=== PATIENT | female | born 1975 | race Caucasian/White ===

== ENCOUNTER 2017-03-31 14:52 | Emergency (ER) | payer BC, OTHER ==
[~2017-03-31] VITALS: Ht 154.9 cm; Wt 59.7 kg
[2017-03-31 15:04] VITALS: BP 113/69; PULSE 94; RESP 16; TEMP 98.5; O2SAT 99
--- NOTE | 2017-03-31 15:24 | PD ---
HPI Chief Complaint: Respiratory Symptoms Time Seen by Provider: 15:07 Travel History International Travel<30 days: No Contact w/Intl Traveler<30days: No Traveled to known affect area: No History of Present Illness HPI The patient is a 41-year-old female who presents to the emergency department for multiple complaints. The patient notes an ongoing history of low back pain that has progressed over the last several days. The pain is located lower lumbar region, bilateral, worse with lying supine, worse in the morning when she awakens, and better with activity and standing upright. There is no pain elicited with rotation of the thorax or flexion/extension of the thorax. The pain is nonradiating, she denies any weakness or numbness of lower extremities. The patient denies any urinary or fecal incontinence, however, does note occasional difficulty initiating a urinary stream. The patient also complains of a dry nonproductive cough for the last 2 days that his "raspy ". The patient denies any history of tobacco use, COPD, bronchitis, or pulmonary embolism. The patient denies any recent hospitalizations, travels, or surgeries. The patient does have a remote history of breast cancer with subsequent bilateral mastectomy, did not undergo chemotherapy or radiation therapy. The patient does have a history of left ovarian cyst, was advised by her physician that this may be causing her low back pain. She denies any nausea , vomiting, diarrhea, abdominal pain, dysuria, frequency, or urgency. She denies any trauma to the low back. PFSH Past Medical History Cancer: Yes (LEFT BREAST 2004, RAJAT MASTECTOMY WITH SENTINEL NODE INVOLVEMENT) Diminished Hearing: No Immunizations Current: Yes Influenza Vaccination: No ?: Not : 3 Para: 3 Miscarriage: 0 : 0 Past Surgical History Section: Yes Mastectomy: Yes (BILATERAL) Other Surgery: Yes (BILATERAL MASTECTOMY 2003, breast implants) Social History Alcohol Use: Yes (socially) Tobacco Use: No Substance Use: No Allergies-Medications (Allergen,Severity, Reaction): Coded Allergies: Penicillin (Verified Allergy, Severe, SOB HIVES, 03/31/17) Reported Meds & Prescriptions Reported Meds & Active Scripts Active No Active Prescriptions or Reported Medications Review of Systems Except as stated in HPI: all other systems reviewed are Neg General / Constitutional: No: Fever Cardiovascular: No: Chest Pain or Discomfort Respiratory: Positive: Cough, No: Shortness of Breath, Wheezing Gastrointestinal: No: Nausea, Vomiting, Abdominal Pain Genitourinary: No: Dysuria Musculoskeletal: Positive: Pain (low back pain) Neurologic: No: Paresthesia, Sensory Disturbance Physical Exam Narrative GENERAL: Awake, alert, 41-year-old female who appears her stated age is in no acute respiratory distress. SKIN: Focused skin assessment warm/dry. HEAD: Atraumatic. Normocephalic. EYES: Pupils equal and round. No scleral icterus. No injection or drainage. ENT: No nasal bleeding or discharge. Mucous membranes pink and moist. NECK: Trachea midline. No JVD. CARDIOVASCULAR: Regular rate and rhythm. No murmur appreciated. RESPIRATORY: No accessory muscle use. Clear to auscultation. Breath sounds equal bilaterally. GASTROINTESTINAL: Abdomen soft, minimal suprapubic tenderness. Back: No tenderness over the lumbar vertebrae. No tenderness of the paravertebral muscles. No tenderness of the sacroiliac joints. No pain elicited with rotation of the thorax to the left or right. No pain elicited with flexion and extension of the thorax. MUSCULOSKELETAL: No obvious deformities. No clubbing. No cyanosis. No edema. NEUROLOGICAL: Awake and alert. No obvious cranial nerve deficits. Motor grossly within normal limits. Normal speech. PSYCHIATRIC: Appropriate mood and affect; insight and judgment normal. Data Data Last Documented VS Vital Signs Date Time Temp Pulse Resp B/P Pulse Ox O2 Delivery O2 Flow Rate FiO2 03/31/17 15:17 100 Room Air 03/31/17 15:04 98.5 94 16 113/69 Orders Chest, Single Ap (03/31/17 ) Spine, Lumbar - Ltd (Ap & Lat) (03/31/17 ) Urinalysis - C+S If Indicated (03/31/17 15:16) Ed Urine Pregnancytest Poc (03/31/17 15:16) Labs Laboratory Tests Test 03/31/17 15:20 Urine Collection Type CLEAN CATCH Urine Color YELLOW Urine Turbidity CLEAR Urine pH 5.5 Urine Specific [place] 1.026 Urine Protein NEG mg/dL Urine Glucose (UA) NEG mg/dL Urine Ketones NEG mg/dL Urine Occult Blood TRACE Urine Nitrite NEG Urine Bilirubin NEG Urine Leukocyte Esterase NEG Urine WBC 0-2 /hpf Urine Squamous Epithelial 0-5 /hpf Cells Microscopic Urinalysis Comment CULT NOT INDICATED MDM Medical Decision Making Medical Screen Exam Complete: Yes Emergency Medical Condition: Yes Medical Record Reviewed: Yes Interpretation(s) Laboratory Tests Test 03/31/17 15:20 Urine Collection Type CLEAN CATCH Urine Color YELLOW Urine Turbidity CLEAR Urine pH 5.5 Urine Specific [place] 1.026 Urine Protein NEG mg/dL Urine Glucose (UA) NEG mg/dL Urine Ketones NEG mg/dL Urine Occult Blood TRACE Urine Nitrite NEG Urine Bilirubin NEG Urine Leukocyte Esterase NEG Urine WBC 0-2 /hpf Urine Squamous Epithelial 0-5 /hpf Cells Microscopic Urinalysis Comment CULT NOT INDICATED Last Impressions Lumbar Spine X-Ray 03/31/17 0000 Signed Impressions: Service Date/Time: Friday, March 31, 2017 15:25 - CONCLUSION: 1. Mild degenerative changes as described above.8 Ed Aaron MD Chest X-Ray 03/31/17 0000 Signed Impressions: Service Date/Time: Friday, March 31, 2017 15:20 - CONCLUSION: 1. No acute cardiopulmonary disease. Ed Aaron MD Differential Diagnosis Differential diagnosis includes bronchitis, medication side effect, congestive heart failure, GERD, pulmonary embolism, pneumonia, back pain, metastasis, spondylolisthesis, osteoarthritis, UTI, . Narrative Course The bedside UA test was negative, UA was sent to lab. Chest x-ray and lumbar spine x-ray were obtained. UA reveals trace blood otherwise unremarkable. X-ray lumbar spine reveals degenerative changes and loss of the lordotic curve, otherwise unremarkable. Chest x-ray is negative. The patient is advised to follow-up with a primary physician, she may benefit from referral to physical therapy for core training exercises, his symptoms persist she may benefit from outpatient follow-up with orthopedics. The patient stable for outpatient follow-up. Diagnosis Primary Impression: Low back pain Qualified Code: M54.5 - Acute bilateral low back pain without sciatica Additional Impression: Cough Patient Instructions: General Instructions Additional Instructions: Ibuprofen as directed. Follow-up with a primary physician, you may benefit from outpatient physical therapy evaluation. Return if symptoms worsen or progress. Please provide the patient a copy of her urine results and x-ray results at discharge. Med/Other Pt SpecificInfo: Prescription(s) given Scripts Ibuprofen 600 Mg Pmn323 Mg PO Q6H PRN (Pain/Inflammation) #20 TAB Ref 0 Prov:Edmond Duke MD 03/31/17 Disposition: 01 DISCHARGE HOME Condition: Stable Edmond Duke MD March 31, 2017 15:24
--- NOTE | 2017-03-31 15:42 | RADHPO ---
EXAM DATE/TIME: 03/31/2017 15:20 [facility] COMPARISON: No previous studies available for comparison. INDICATIONS : Cough. MEDICAL HISTORY : Carcinoma, breast. SURGICAL HISTORY : Mastectomy, right. Mastectomy, left. ENCOUNTER: Initial ACUITY: 3 days PAIN SCORE: 2/10 LOCATION: Bilateral chest FINDINGS: The cardiac silhouette is normal in transverse diameter. The lungs are free of acute parenchymal opac ity. No effusions are identified. There are surgical clips in the axillary regions bilaterally. CONCLUSION: 1. No acute cardiopulmonary disease. Ed Aaron MD on March 31, 2017 at 15:40 Board Certified Radiologist. This report was verified electronically.
--- NOTE | 2017-03-31 15:44 | RADHPO ---
EXAM DATE/TIME: 03/31/2017 15:25 [facility] COMPARISON: No previous studies available for comparison. INDICATIONS : Lumbar spine pain. No known injury. MEDICAL HISTORY : Carcinoma, breast. SURGICAL HISTORY : Mastectomy, left. Mastectomy, right. ENCOUNTER: Initial ACUITY: 1 month PAIN SCORE: 8/10 LOCATION: Bilateral lumbar spine FINDINGS: There is reversal of the normal lumbar lordosis. There is no evidence of acute fracture. Bony mineral ization is normal. Degenerative changes present at the thoracolumbar junction. No bony destruction is identified. CONCLUSION: 1. Mild degenerative changes as described above.8 Ed Aaron MD on March 31, 2017 at 15:41 Board Certified Radiologist. This report was verified electronically.
[2017-03-31 15:58] LABS: BLOOD, URINE TRACE (NEG); GLUCOSE,URINE NEG (NEG); KETONE, URINE NEG (NEG); NITRITE,URINE NEG (NEG); PH, URINE 5.5 (5.0-8.5)
[2017-03-31 16:33] LABS: METHOD OF COLLECTION CLEAN CATCH; SQUAMOUS EPITHELIAL CELL URINE 0-5 /hpf (0-5); URINE COLOR YELLOW (YELLW/STRAW); WBC, URINE 0-2 /hpf (0-5)
[2017-03-31 16:34] LABS: COMMENT (UR) CULT NOT INDICATED; CULTURE IF INDICATED CULT NOT INDICATED
[2017-03-31] MEDS ORDERED: IBUP-232 PO (16:46)
== END 2017-03-31 16:57 | disposition home or self-care (01) ==
LOC: PHED 14:52
DX: M54.5 Low back pain (principal); R05 Cough; Z88.0 Allergy status to penicillin
CPT/HCPCS: 71010; 72100; 81001; 84703; 99284

== ENCOUNTER 2017-11-07 20:22 | Emergency (ER) | payer BC, OTHER ==
[~2017-11-07] VITALS: Ht 152.4 cm; Wt 63.2 kg
[~2017-11-07 20:22] MED LIST: IBUP-232 PO
[2017-11-07 20:32] VITALS: BP 110/56; PULSE 79; RESP 16; TEMP 99.2; O2SAT 99
[2017-11-07] MEDS ORDERED: LEVO50TA4 PO (20:42)
[2017-11-07] MEDS ORDERED: AZIT250T3 PO (20:50)
[2017-11-07] MEDS ORDERED: ALBUAER3 INH (20:50)
[2017-11-07] MEDS ORDERED: PRED20 PO (20:50)
--- NOTE | 2017-11-07 20:51 | PD ---
HPI Chief Complaint: Cold / Flu Symptoms Time Seen by Provider: 20:40 Travel History International Travel<30 days: No Contact w/Intl Traveler<30days: No Traveled to known affect area: No History of Present Illness HPI 42 -year-old female here with productive cough and wheezing times one week. She reports sputum production. Subjective fever and chills. Symptoms severity moderate. Unrelieved by [id number] cough cold medications. She has had similar symptoms in the past with bronchitis/pneumonia. PFSH Past Medical History Cancer: Yes (LEFT BREAST 2003, RAJAT MASTECTOMY WITH SENTINEL NODE INVOLVEMENT) Diminished Hearing: No Immunizations Current: Yes Thyroid Disease: Yes Tetanus Vaccination: > 5 Years Influenza Vaccination: No ?: Not LMP: 10/25/17 : 3 Para: 3 Miscarriage: 0 : 0 Past Surgical History Section: Yes Mastectomy: Yes (BILATERAL) Other Surgery: Yes (BILATERAL MASTECTOMY 2003, breast implants) Social History Alcohol Use: Yes (socially) Tobacco Use: No Substance Use: No Allergies-Medications (Allergen,Severity, Reaction): Coded Allergies: penicillin G (Unverified Allergy, Severe, SOB HIVES, 11/07/17) Reported Meds & Prescriptions Reported Meds & Active Scripts Active Proair Hfa 8.5 GM Inh (Albuterol Sulfate) 90 Mcg/Act Aer 2 Puff INH Q4-6H PRN 108 mcg/actuation Prednisone 20 Mg Tab 40 Mg PO DAILY Take 40 mg (2 tablets) daily for 5 days Azithromycin 250 Mg Tab 250 Mg PO DIRECTED Take 2 tabs (500 mg) on day 1 then 1 tab daily x 4 days. Reported Levothyroxine (Levothyroxine Sodium) 50 Mcg Tab 50 Mcg PO DAILY Review of Systems Except as stated in HPI: all other systems reviewed are Neg General / Constitutional: Positive: Fever HENT: No: Headaches Cardiovascular: No: Chest Pain or Discomfort Respiratory: Positive: Cough, Wheezing Gastrointestinal: No: Abdominal Pain Physical Exam Narrative GENERAL: Alert female. Well-appearing SKIN: Warm and dry. HEAD: Normocephalic. EYES: No injection or drainage. NECK: Supple, trachea midline. CARDIOVASCULAR: Regular rate and rhythm RESPIRATORY: Breath sounds equal bilaterally. No accessory muscle use. Harsh sounding cough with rhonchi. Slight expiratory wheezes. GASTROINTESTINAL: Abdomen soft, non-tender, nondistended. Data Data Last Documented VS Vital Signs Date Time Temp Pulse Resp B/P (MAP) Pulse Ox O2 Delivery O2 Flow Rate FiO2 11/07/17 20:41 Room Air 11/07/17 20:32 99.2 79 16 110/56 (74) 99 MDM Medical Decision Making Medical Screen Exam Complete: Yes Emergency Medical Condition: Yes Differential Diagnosis Bronchitis, pneumonia, influenza, reactive airway Narrative Course 42-year-old female here with rhonchorous cough with productive sputum. Her vital signs are stable. Diagnosis Primary Impression: Bronchitis Referrals: Primary Care Physician Scripts Albuterol 8.5 GM Inh (Proair Hfa 8.5 GM Inh) 90 Mcg/Act Aer 2 PUFF INH Q4-6H Y for SHORTNESS OF BREATH, #1 INHALER 0 Refills 108 mcg/actuation Prov: Sabrina Sanders 11/07/17 Prednisone (Prednisone) 20 Mg Tab 40 MG PO DAILY, #10 TAB 0 Refills Take 40 mg (2 tablets) daily for 5 days Prov: Sabrina Sanders 11/07/17 Azithromycin (Azithromycin) 250 Mg Tab 250 MG PO DIRECTED for Infection, #6 TAB 0 Refills Take 2 tabs (500 mg) on day 1 then 1 tab daily x 4 days. Prov: Sabrina Sanders 11/07/17 Disposition: 01 DISCHARGE HOME Condition: Stable Sabrina Sanders Nov 07, 2017 20:51
== END 2017-11-07 20:57 | disposition home or self-care (01) ==
LOC: PHEFT 20:22
DX: J40 Bronchitis, not specified as acute or chronic (principal)
CPT/HCPCS: 99284

== ENCOUNTER 2018-03-31 21:17 | Emergency (ER) | payer BC, OTHER ==
[~2018-03-31] VITALS: Ht 157.5 cm; Wt 61.0 kg
[~2018-03-31 21:17] MED LIST changes: +ALBUAER3 INH; +AZIT250T3 PO; -IBUP-232 PO; +LEVO50TA4 PO; +PRED20 PO
[2018-03-31 21:20] VITALS: BP 114/55; PULSE 85; RESP 18; TEMP 98.4; O2SAT 98
[2018-03-31 22:24] LABS: AUTOMATED NEUTROPHIL # 3.7 TH/MM3 (1.8-7.7); BASOPHIL # 0.1 TH/MM3 (0-0.2); BASOPHIL % 1.8 % (0.0-2.0); EOSINOPHIL # 0.4 TH/MM3 (0-0.4); HEMATOCRIT 38.6 % (35.0-46.0); HEMOGLOBIN 13.3 GM/DL (11.6-15.3); LYMPH % 36.5 % (9.0-44.0); LYMPHOCYTE # 2.7 TH/MM3 (1.0-4.8); MEAN CORPUSCULAR HEMOGLOBIN 32.4 PG (27.0-34.0); MEAN CORPUSCULAR HGB CONC 34.5 % (32.0-36.0); MEAN PLATELET VOLUME 7.7 FL (7.0-11.0); MONO % 8.6 % (0.0-8.0); MONOCYTE # 0.6 TH/MM3 (0-0.9); NEUT % 47.1 % (16.0-70.0); PLATELET COUNT 284 TH/MM3 (150-450); RED BLOOD COUNT 4.11 MIL/MM3 (4.00-5.30); RED CELL DISTRIBUTION WIDTH 11.9 % (11.6-17.2); WHITE BLOOD COUNT 7.5 TH/MM3 (4.0-11.0)
[2018-03-31 22:31] LABS: CHLORIDE 105 MEQ/L (98-107); SODIUM (NA) 139 MEQ/L (136-145)
[2018-03-31 22:34] LABS: BICARBONATE 28.6 MEQ/L (21.0-32.0); CALCIUM 8.8 MG/DL (8.5-10.1); GLUCOSE,RANDOM 90 MG/DL (74-106)
[2018-03-31 22:35] LABS: BLOOD UREA NITROGEN 13 MG/DL (7-18)
[2018-03-31 22:38] LABS: CREATININE 0.91 MG/DL (0.50-1.00); GLOMERULAR FILTRATION RATE 68 ML/MIN (>89)
[2018-03-31 22:39] LABS: C-REACTIVE PROTEIN LESS THAN 0.29 MG/DL (0.00-0.30)
--- NOTE | 2018-03-31 23:46 | RADRPT ---
EXAM DATE: 03/31/2018 11:37 PM EDT AGE/SEX: 42 years / Female INDICATIONS: Intermittent right temporal pain and blurry vision x 3 months, worse this week. CLINICAL DATA: This is the patient's initial encounter. Patient reports that signs and symptoms have been present for 3 months and indicates a pain score of 6/10. MEDICAL/SURGICAL HISTORY: Carcinoma, breast. Mastectomy, bilateral. section. RADIATION DOSE: 52.57 CTDI (mGy) COMPARISON: No prior [facility] exams available for comparison. TECHNIQUE: CT of the head without contrast. Using automated exposure control and adjustment of the mA and/or kV according to patient size, radiation dose was kept as low as reasonably achievable to ob tain optimal diagnostic quality images. FINDINGS: Cerebrum: The ventricles are normal for age. No evidence of midline shift, mass lesion, hemorrhage or acute infarction. No extraaxial fluid collections are seen. Posterior Fossa: The cerebellum and brainstem are intact. The 4th ventricle is midline. The cerebe llopontine angle is unremarkable. Extracranial: The visualized portion of the orbits is intact. Skull: The calvaria is intact. No evidence of skull fracture. CONCLUSION: 1. Negative noncontrast head CT. Electronically signed by: Rafael Carpenter MD 03/31/2018 11:44 PM EDT
[2018-04-01] MEDS ORDERED: KETOROLAC TROMETHAMINE 30 MG/ML (IVP) VIAL IV PUSH ONE
--- NOTE | 2018-04-01 00:03 | PD ---
HPI Chief Complaint: Headache Time Seen by Provider: 22:08 Travel History International Travel<30 days: No Contact w/Intl Traveler<30days: No Traveled to known affect area: No History of Present Illness HPI 42-year-old female presents to the emergency department by private transportation for complaint of headache; several weeks of headache with worsening tonight. Headache is right-sided is not sudden onset not thunderclap no visual disturbance no photophobia no diplopia no blurred vision. Patient is concerned that she has temporal arteritis. No prior history of migraine headaches no family history of migraine headaches patient is taken no medications or symptoms. Patient states headache is present every day and just waxes and wanes in intensity at worst to 5/10 intensity at least is a 3/10 intensity. Patient is taken no medications prior to arrival to the emergency department. PFSH Past Medical History Cancer: Yes (LEFT BREAST 2003, RAJAT MASTECTOMY WITH SENTINEL NODE INVOLVEMENT) Diminished Hearing: No Immunizations Current: Yes Thyroid Disease: Yes Tetanus Vaccination: Unknown Influenza Vaccination: No ?: Not LMP: 03-31-18 : 3 Para: 3 Miscarriage: 0 : 0 Past Surgical History Section: Yes Mastectomy: Yes (BILATERAL) Other Surgery: Yes (BILATERAL MASTECTOMY 2003, breast implants) Social History Alcohol Use: Yes (socially) Tobacco Use: No Substance Use: No Allergies-Medications (Allergen,Severity, Reaction): Coded Allergies: penicillin G (Unverified Allergy, Severe, SOB HIVES, 03/31/18) Reported Meds & Prescriptions Reported Meds & Active Scripts Active Reported Levothyroxine (Levothyroxine Sodium) 50 Mcg Tab 50 Mcg PO DAILY Review of Systems Except as stated in HPI: all other systems reviewed are Neg General / Constitutional: No: Fever, Chills Eyes: Positive: Blurred Vision, Photophobia, No: Diploplia HENT: No: Headaches, Congestion Cardiovascular: No: Chest Pain or Discomfort Respiratory: No: Shortness of Breath Gastrointestinal: No: Nausea Genitourinary: No: Urgency, Frequency Skin: No Rash, No Itching Neurologic: No: Weakness Psychiatric: No: Anxiety Endocrine: No: Heat Intolerance Hematologic/Lymphatic: No: Lymph Node Enlargement Physical Exam Narrative GENERAL: Well-developed well-nourished female no acute distress no respiratory distress SKIN: Warm and dry. HEAD: Atraumatic. Normocephalic. EYES: Pupils equal and round. No scleral icterus. No injection or drainage. Pupils equal round reactive to light extraocular muscles intact no temporal artery bruits no carotid bruit airways patent mucous membranes moist ENT: No nasal bleeding or discharge. Mucous membranes pink and moist. NECK: Trachea midline. No JVD. CARDIOVASCULAR: Regular rate and rhythm. RESPIRATORY: No accessory muscle use. Clear to auscultation. Breath sounds equal bilaterally. GASTROINTESTINAL: Abdomen soft, non-tender, nondistended. Hepatic and splenic margins not palpable. MUSCULOSKELETAL: Extremities without clubbing, cyanosis, or edema. No obvious deformities. NEUROLOGICAL: Awake and alert. No obvious cranial nerve deficits. Motor grossly within normal limits. Five out of 5 muscle strength in the arms and legs. Normal speech. PSYCHIATRIC: Appropriate mood and affect; insight and judgment normal. Data Data Last Documented VS Vital Signs Date Time Temp Pulse Resp B/P (MAP) Pulse Ox O2 Delivery O2 Flow Rate FiO2 04/01/18 00:17 88 18 112/55 (74) 99 03/31/18 21:32 Room Air 03/31/18 21:20 98.4 Orders Orders ^ Saline Lock (03/31/18 22:08) Complete Blood Count With Diff (03/31/18 22:08) Basic Metabolic Panel (Bmp) (03/31/18 22:08) W[place]gren Sedimentation Rate (03/31/18 22:08) C-Reactive Protein (Crp) (03/31/18 22:08) Ct Brain W/O Iv Contrast(Rout) (03/31/18 ) Ketorolac Inj (Toradol Inj) (04/01/18 00:00) Ed Discharge Order (04/01/18 00:03) Labs Laboratory Tests Test 03/31/18 22:15 White Blood Count 7.5 TH/MM3 Red Blood Count 4.11 MIL/MM3 Hemoglobin 13.3 GM/DL Hematocrit 38.6 % Mean Corpuscular Volume 94.0 FL Mean Corpuscular Hemoglobin 32.4 PG Mean Corpuscular Hemoglobin Concent 34.5 % Red Cell Distribution Width 11.9 % Platelet Count 284 TH/MM3 Mean Platelet Volume 7.7 FL Neutrophils (%) (Auto) 47.1 % Lymphocytes (%) (Auto) 36.5 % Monocytes (%) (Auto) 8.6 % Eosinophils (%) (Auto) 6.0 % Basophils (%) (Auto) 1.8 % Neutrophils # (Auto) 3.7 TH/MM3 Lymphocytes # (Auto) 2.7 TH/MM3 Monocytes # (Auto) 0.6 TH/MM3 Eosinophils # (Auto) 0.4 TH/MM3 Basophils # (Auto) 0.1 TH/MM3 CBC Comment DIFF FINAL Differential Comment Erythrocyte Sedimentation Rate 4 mm/hr Blood Urea Nitrogen 13 MG/DL Creatinine 0.91 MG/DL Random Glucose 90 MG/DL Calcium Level 8.8 MG/DL Sodium Level 139 MEQ/L Potassium Level 3.4 MEQ/L Chloride Level 105 MEQ/L Carbon Dioxide Level 28.6 MEQ/L Anion Gap 5 MEQ/L Estimat Glomerular Filtration Rate 68 ML/MIN C-Reactive Protein LESS THAN 0.29 MG/DL MDM Medical Decision Making Medical Screen Exam Complete: Yes Emergency Medical Condition: Yes Medical Record Reviewed: Yes Interpretation(s) Last Impressions Head CT 03/31/18 0000 Signed Impressions: CONCLUSION: 1. Negative noncontrast head CT. CBC & BMP Diagram 03/31/18 22:15 Calcium Level 8.8 Vital Signs Date Time Temp Pulse Resp B/P (MAP) Pulse Ox O2 Delivery O2 Flow Rate FiO2 03/31/18 21:32 18 98 Room Air 03/31/18 21:20 98.4 85 18 114/55 (74) 98 Differential Diagnosis Headache migraine tension headache temporal arteritis viral syndrome shingles Narrative Course Lab values collected and sent for resulting CT imaging study ordered CT brain noncontrast reveals no acute process CBC sed rate and C-reactive protein values are all normal range Patient is stable for outpatient management and follow-up with her primary care provider Diagnosis Primary Impression: Headache Referrals: Primary Care Physician call for appointment Patient Instructions: General Instructions Additional Instructions: Increase fluid hydration Follow-up with your primary care provider call office on Monday Return to the emergency department for any concerns or change in condition Take ibuprofen/Advil/Motrin 600 mg as often as every 6 hours as needed for pain associated with inflammation or for fever 100.4F or greater Disposition: 01 DISCHARGE HOME Condition: Stable Cora Field MD April 01, 2018 00:03
[2018-04-01 00:17] VITALS: BP 112/55
== END 2018-04-01 00:19 | disposition home or self-care (01) ==
LOC: PHEFT 21:17
DX: R51 Headache (principal); Z85.3 Personal history of malignant neoplasm of breast; Z90.13 Acquired absence of bilateral breasts and nipples
CPT/HCPCS: 70450; 80048; 85025; 85652; 86140; 96374; 99284; J1885